=== PATIENT | female | born 1980 | race Caucasian/White ===

== ENCOUNTER 2017-05-08 08:00 | Emergency (ER) | payer BC ==
[~2017-05-08] VITALS: Ht 162.6 cm; Wt 93.4 kg
[2017-05-08 10:17] VITALS: BP 122/68
== END 2017-05-08 10:17 | disposition home or self-care (01) ==
LOC: ED 08:00
DX: S39.012A Strain of muscle, fascia and tendon of lower back, initial encounter (principal); S16.1XXA Strain of muscle, fascia and tendon at neck level, initial encounter; V43.63XA Car passenger injured in collision with pick-up truck in traffic accident, initial encounter; Y93.89 Activity, other specified; Y99.8 Other external cause status; Y92.89 Other specified places as the place of occurrence of the external cause